=== PATIENT | male | born 1955 | race Caucasian/White ===

== ENCOUNTER → 2022-05-14 14:17 | Outpatient (BNVA) | payer MEDICARE, SELFPAY | PROVIDERS: Referring Provider Registered Nurse; Visit Provider Orthopaedic Surgery | DX: M65.312 Trigger thumb, left thumb (principal) | CPT/HCPCS: 99203 ==

== ENCOUNTER 2022-06-13 08:07 | Day surgery (SDC) | payer MEDICARE, SELFPAY ==
[2022-06-12 09:26] VITALS: BMI 30.4
[2022-06-13] MEDS: sodium chloride 0.9% 1,000 ML 30 ML IV (08:40)
[2022-06-13 08:41] VITALS: BP 124/76; PULSE 64; RESP 18; TEMP 36.1; O2SAT 97
--- NOTE | 2022-06-13 09:45 | ANES.PREANE2 ---
Pre-Anesthetic Assessment Height/Weight: Height 1.73 m Weight 90.718 kg Temp Pulse Resp BP Pulse Ox O2 Del Method 97 F L 64 18 124/76 97 06/13/22 08:41 06/13/22 08:41 06/13/22 08:41 06/13/22 08:41 06/13/22 08:41 06/13/22 08:41 Preop Diagnosis: Left trigger thumb Operation Date: 06/13/22 10:30 Proposed Procedures p left thumb trigger finger [id number](Left) - Brian Tan MD Familial anesthetic complications: none Was Beta Carola taken within 24 hours: Yes Was Clonidine taken within 24 hours: N/A Last intake: Intake Last Liquid Date 06/12/22 Last Liquid Time 20:00 Last Solid Date 06/12/22 Last Solid Time 17:00 Social Tobacco and No alcohol Exam alert, oriented x 3 and regular rate & rhythm Airway Submandibular: within normal limits Cervical ROM: within normal limits Mallampati: Class II Dentition: caps Pulmonary Chronic Obstructive Pulmonary Disease CV/HEM Atrial Fibrillation and Hypertension anticoagulation Anesthetic Plan ASA status: 3 Anesthesia: Choice Medications/Allergies Home Medications Medication Instructions Recorded Confirmed Last Taken Type apixaban 5 mg tablet (Eliquis) 5 mg PO BID 06/12/22 06/12/22 06/12/22 History dofetilide 250 mcg capsule 250 mcg PO DAILY 06/12/22 06/12/22 06/12/22 History (Tikosyn) metoprolol succinate 100 mg 100 mg PO DAILY 06/12/22 06/13/22 1 Day Ago History tablet,extended release 24 hr ~06/12/22 topiramate 25 mg tablet See Rx Instructions .Route .COMPLEX 06/12/22 06/12/22 06/12/22 History Allergies Allergy/AdvReac Type Severity Reaction Status Date / Time No Known Allergies Allergy Verified 06/13/22 08:23 Current Medications Generic Name Dose Route Start Last Admin Trade Name Freq PRN Reason Stop Dose Admin Sodium Chloride 1,000 mls @ 30 mls/hr 06/13/22 08:30 06/13/22 08:40 Sodium Chloride 0.9% IV 06/14/22 08:29 30 mls/hr .Q24H SHAWNA Administration Data Anesthesia Cardiac Studies: No Data to Display
--- NOTE | 2022-06-13 10:40 | W.PM.OPSUD ---
Surgery/Procedure H&P Update DATE OF PROCEDURE: June 13, 2022 DATE H&P PERFORMED: 05/14/22 H&P UPDATE INFORMATION: I have reviewed H&P completed within last 30 days PREOP DIAGNOSIS: Left trigger thumb PLANNED PROCEDURE: Operation Date: 06/13/22 10:30 Proposed Procedures p left thumb trigger finger [id number](Left) - Brian Tan MD
[2022-06-13] MEDS: ceFAZolin 2,000 MG in sodium chloride 0.9% (plus) 50 ML 100 MG IV (10:49)
--- NOTE | 2022-06-13 11:24 | PM.OP ---
Operative Report Date of procedure: June 13, 2022 Pre-op diagnosis: Preop Diagnosis Left trigger thumb Post-op diagnosis: same Procedure done: Left trigger thumb release Pathology: none sent Surgeon: Brian Tan Anesthesia: MAC and Local Estimated blood loss: 2 Tourniquet time (min): 14 Findings: No abnormalities were visible with the profundus flexor tendon or A1 kierra of the thumb at the IP joint Condition: stable Disposition: PACU Procedure: The patient's hand was prepped in the usual fashion. Sedation was provided by the anesthesia service. A timeout was performed. Tourniquet was inflated 250 mmHg. The area over the A1 kierra was infiltrated with 2 cc of half percent Marcaine. I transverse incision was made over the level of a 1 kierra in the palm over a distance of approximately a centimeter and a half. Under loupe magnification blunt dissection was accomplished down to the A1 kierra. With adequate visualization a scalpel was used to divide the central 8 mm of that structure. Blunt scissors were then used to extend the release approximately 5 mm proximally and 5 mm distally. Tendons were pulled the road and inspected to assure there health. Skin edges were infiltrated with an additional 2 cc of 0.5%n Marcaine. The skin edges were closed with 3-0 Prolene compressive dressings were applied.
[2022-06-13 11:30] VITALS: BP 119/68; PULSE 71; RESP 14; TEMP 36.1; O2SAT 93
[2022-06-13 11:35] VITALS: BP 129/77; PULSE 69; RESP 14; TEMP 36.1; O2SAT 95
[2022-06-13 12:00] VITALS: BP 125/86; PULSE 68; RESP 18; O2SAT 96
--- NOTE | 2022-06-13 18:13 | ANE.PACU2 ---
Inpatient post-anesthesia follow up: Airway intact: Yes Vital signs: Temperature 97.0 F Pulse Rate 68 Respiratory Rate 18 Blood Pressure 125/86 Pulse Oximetry 96 Oxygen Delivery Me thod Room Air Oxygen Flow Rate Fraction of Inspir ed Oxygen Hydration adequate: Yes Nausea and vomiting: No Pain level: 2 Mental status: Baseline
== END 2022-06-13 12:15 | disposition home or self-care (01) ==
PROVIDERS: Visit Provider Orthopaedic Surgery
PROC: (CPT 26055; principal; 2022-06-13 10:30)
DX: M65.312 Trigger thumb, left thumb (principal); J44.9 Chronic obstructive pulmonary disease, unspecified; I48.91 Unspecified atrial fibrillation; I10 Essential (primary) hypertension; Z79.01 Long term (current) use of anticoagulants
CPT/HCPCS: 26055; J0690; J2704; J3010; J3490; J7030